=== PATIENT | female | born 1970 | race Caucasian/White ===

== ENCOUNTER 2024-06-05 10:03 | Day surgery (SDC) | payer BC, OTHER ==
[2024-06-05] MEDS: Sodium Chloride 0.9% 1,000 ML IV SCH (10:11)
[2024-06-05] MEDS ORDERED: Sodium Chloride 0.9% 10 ML Syringe FLUSH PRN (10:15)
[2024-06-05] MEDS ORDERED: Midazolam 1 MG/ML 2 ML SDV ONE (11:39)
[2024-06-05] MEDS ORDERED: Propofol 200 MG/20 ML SDV ONE (11:39)
== END 2024-06-05 13:35 | disposition home or self-care (01) ==
LOC: KA.SDS 10:03
PROVIDERS: ATTEND Family Medicine
DX: Z12.11 Encounter for screening for malignant neoplasm of colon (principal); K57.30 Diverticulosis of large intestine without perforation or abscess without bleeding; K64.8 Other hemorrhoids; I10 Essential (primary) hypertension; E11.9 Type 2 diabetes mellitus without complications; E03.9 Hypothyroidism, unspecified; K21.9 Gastro-esophageal reflux disease without esophagitis; E66.01 Morbid (severe) obesity due to excess calories; Z68.42 Body mass index [BMI] 45.0-49.9, adult; Z86.0100 Personal history of colon polyps, unspecified; Z87.891 Personal history of nicotine dependence; Z79.890 Hormone replacement therapy; Z79.899 Other long term (current) drug therapy
CPT/HCPCS: 82947; J2250; J2704; J3490; J7030